=== PATIENT | female | born 1990 | race Caucasian/White ===

== ENCOUNTER 2021-08-31 10:43 | Emergency (ER) | payer SELFPAY ==
[~2021-08-31] VITALS: Ht 154.9 cm; Wt 62.3 kg
[2021-08-31] MEDS ORDERED: FAMOTIDINE 20 MG/2 ML VIAL IV STA (13:21)
[2021-08-31] MEDS ORDERED: SODIUM CHLORIDE 0.9% 1000ML 1,000 ML IV SCH (13:30)
[2021-08-31] MEDS ORDERED: IOPAMIDOL 370 MG/ML 100 ML INFUS..BTL INJ ONE (13:54)
[2021-08-31] MEDS ORDERED: FAMOTIDINE 20 MG/2 ML VIAL IV ONE (14:12)
[2021-08-31] MEDS ORDERED: EMVERM100 MG PO (15:59)
[2021-08-31 16:11] VITALS: BP 122/91
== END 2021-08-31 16:11 | disposition home or self-care (01) ==
LOC: FSED 11:11
DX: R05.9 Cough, unspecified (principal); B34.9 Viral infection, unspecified; B82.0 Intestinal helminthiasis, unspecified; R07.89 Other chest pain; K21.9 Gastro-esophageal reflux disease without esophagitis; F17.210 Nicotine dependence, cigarettes, uncomplicated
CPT/HCPCS: 71260; 74177; 80053; 81003; 81025; 82553; 84484; 85025; 96374; 99284; Q9967

== ENCOUNTER 2021-11-07 13:50 | Emergency (ER) | payer SELFPAY ==
[~2021-11-07] VITALS: Ht 154.9 cm; Wt 62.1 kg
[~2021-11-07 13:50] MED LIST: EMVERM100 MG PO
[2021-11-07] MEDS ORDERED: VENTOLIN HFA18 GM INH (14:36)
[2021-11-07] MEDS ORDERED: AZITHROMYCIN250 MG PO (14:36)
[2021-11-07] MEDS ORDERED: PREDNISONE20 MG PO (14:36)
== END 2021-11-07 14:42 | disposition home or self-care (01) ==
LOC: FSED 13:54
DX: R05.9 Cough, unspecified (principal); J40 Bronchitis, not specified as acute or chronic; K21.9 Gastro-esophageal reflux disease without esophagitis; F17.210 Nicotine dependence, cigarettes, uncomplicated
CPT/HCPCS: 71046; 99283

== ENCOUNTER 2022-01-13 14:16 | Emergency (ER) | payer OTHER ==
[~2022-01-13] VITALS: Ht 154.9 cm; Wt 59.0 kg
[~2022-01-13 14:16] MED LIST changes: +AZITHROMYCIN250 MG PO; +PREDNISONE20 MG PO; +VENTOLIN HFA18 GM INH
[2022-01-13] MEDS ORDERED: VENTOLIN HFA18 GM INH (14:51)
[2022-01-13] MEDS ORDERED: PREDNISONE20 MG PO (14:51)
[2022-01-13] MEDS ORDERED: AZITHROMYCIN250 MG PO (14:51)
== END 2022-01-13 15:05 | disposition home or self-care (01) ==
LOC: FSED 14:25
DX: R05.9 Cough, unspecified (principal); J40 Bronchitis, not specified as acute or chronic; K21.9 Gastro-esophageal reflux disease without esophagitis; F17.210 Nicotine dependence, cigarettes, uncomplicated
CPT/HCPCS: 87420; 99282

== ENCOUNTER 2022-07-04 09:52 | Emergency (ER) | payer OTHER ==
[~2022-07-04] VITALS: Ht 154.9 cm; Wt 56.7 kg
[2022-07-04] MEDS ORDERED: AMOXICILLIN500 MG PO ×2 (11:46→11:49)
[2022-07-04 12:35] VITALS: PULSE 92; RESP 18; O2SAT 100
== END 2022-07-04 12:37 | disposition home or self-care (01) ==
LOC: FSED 10:07
DX: K02.9 Dental caries, unspecified (principal); S02.5XXA Fracture of tooth (traumatic), initial encounter for closed fracture; Z33.1 Pregnant state, incidental
CPT/HCPCS: 81025; 99282